=== PATIENT | female | born 1935 | race Caucasian/White ===

== ENCOUNTER 2016-04-08 10:25 | Day surgery (SDC) | payer MEDICARE, OTHER ==
[2016-04-08] VITALS (12 sets, daily range): BP systolic 135–162; BP diastolic 58–70; PULSE 85–107; RESP 16–23; Ht 162.6 cm; Wt 68.2 kg
[~2016-04-08] VITALS: Ht 162.6 cm; Wt 68.2 kg
[~2016-04-08 10:25] MED LIST: ATOR10TA23; HYDR-13; LISINOP/HCTZ; METF500T4; METO100T
[2016-04-08] MEDS ORDERED: AMLO-147 PO (11:47)
[2016-04-08] MEDS ORDERED: CRAN450T7 PO (11:48)
[2016-04-08] MEDS ORDERED: CHOL100062 PO (11:48)
[2016-04-08] MEDS ORDERED: GLIP5TAB13 PO (11:49)
[2016-04-08] MEDS ORDERED: GLUC1KIT2 IJ (11:50)
[2016-04-08] MEDS ORDERED: DEXT38GE15 PO (11:50)
[2016-04-08] MEDS ORDERED: POLY17PO3 PO (11:51)
[2016-04-08] MEDS ORDERED: HYDR50CA2 PO (11:52)
[2016-04-08] MEDS ORDERED: APR50 PO (11:52)
[2016-04-08] MEDS ORDERED: LEVO25TA53 PO (11:53)
[2016-04-08] MEDS ORDERED: METO-407 PO (11:54)
[2016-04-08] MEDS ORDERED: MIRT15TA5 PO (11:55)
[2016-04-08] MEDS ORDERED: MULTI PO (11:55)
[2016-04-08] MEDS ORDERED: CLOP75TA27 PO (11:56)
[2016-04-08] MEDS ORDERED: HYDR-902 PO (11:56)
[2016-04-08] MEDS ORDERED: ASCO500C7 PO (11:58)
[2016-04-08] MEDS ORDERED: TRAM-40 PO (11:58)
[2016-04-08 12:38] LABS: BASOPHIL # 0.1 10^3/ul (0.0-0.1); BASOPHILS % 0.4 % (0.0-2.0); EOSINOPHILS # 0.2 10^3/ul (0.0-0.5); EOSINOPHILS % 1.5 % (0.0-7.0); HEMATOCRIT 28.1 % (37.0-47.0); HEMOGLOBIN 9.2 g/dl (12.0-16.0); LYMPHOCYTES % 24.8 % (15.0-51.0); MEAN CORPUSCULAR HGB CONC 32.6 g/dl (32.0-37.0); MEAN CORPUSCULAR VOLUME 79.9 fl (82.0-101.0); MEAN PLATELET VOLUME 7.7 fl (7.4-10.4); MONOCYTES % 8.3 % (0.0-11.0); NEUTROPHIL # 7.9 10^3/ul (1.6-7.5); PLATELET COUNT 433 10^3/UL (140-440); RED BLOOD COUNT 3.52 10^6/ul (4.20-5.40); RED CELL DISTRIBUTION WIDTH 13.7 % (11.5-14.5); UNCORRECTED WBC 12.1 10^3/ul (4.8-10.8); WHITE BLOOD COUNT 12.1 10^3/ul (4.8-10.8)
[2016-04-08 12:42] LABS: CONDITION 1; LH ANALYZER COMMENTS 1
[2016-04-08 12:54] LABS: ALBUMIN 3.6 g/dl (3.3-4.9)
[2016-04-08 12:55] LABS: POTASSIUM 4.4 mmol/L (3.5-5.1)
[2016-04-08 12:57] LABS: ALBUMIN/GLOBULIN RATIO 0.69; CREATININE 0.67 mg/dl (0.44-1.00); TOTAL PROTEIN 8.8 g/dl (6.1-8.1)
[2016-04-08 12:59] LABS: CALCIUM 9.2 mg/dl (8.4-10.2)
[2016-04-08 13:07] LABS: INR 1.03; PROTIME 13.5 Sec (12.2-14.2); PT RATIO 1.1
[2016-04-08] MEDS ORDERED: FENTAnyl 50 MCG/ML VIAL ONE ×2 (13:18→13:56)
[2016-04-08] MEDS ORDERED: HEPARIN 1000 UNITS/NS (A-LINE) 1,000 ML ONE (13:18)
[2016-04-08] MEDS ORDERED: MIDAZOLAM 1 MG/ML 2 ML INJ ONE (13:18)
[2016-04-08] MEDS ORDERED: LIDOCAINE 1% (MDV) 20 ML INJ ONE (13:18)
[2016-04-08] MEDS ORDERED: IODIXANOL LOCM 50 ML BTL ONE (13:18)
[2016-04-08 13:34] LABS: PARTIAL THROMBOPLASTIN TIME 35.2 Sec (25.0-35.0)
[2016-04-08] MEDS ORDERED: SOD CHLORIDE 0.9% 500 ML ONE (13:45)
[2016-04-08] MEDS ORDERED: hydrALAzine 20 MG INJ ONE (13:53)
[2016-04-08] MEDS ORDERED: HYDROCODONE/APAP (5/325) TAB PO ONE (15:00)
--- NOTE | 2016-04-08 15:15 | OPR ---
DATE OF OPERATION: PREOPERATIVE DIAGNOSIS: Peripheral vascular disease, left lower extremity. POSTOPERATIVE DIAGNOSIS: Peripheral vascular disease, left lower extremity. OPERATIONS PERFORMED: 1. Angioplasty left femoral artery 6 x 40 mm balloon 2. Abdominal aortogram 3. Left lower extremity failed aortic angiogram. 5. Interpretation and supervision of the abdominal aortogram 6. Interpretation and supervision of the angioplasty in left lower extremity failed ____angiogram. 7. Ultrasound guidance into the central vein. 8. Conscious sedation. 9. Fluoroscopy. 9. Angio-Seal closure of the right femoral artery. SURGEON: Barrett Benoit MD CHALK MACHINE OPERATOR: Dr. Woo OPERATIVE TECHNIQUE: The patient was placed in supine position, prepped and draped in usual sterile fashion. Under ultrasonic guidance, access was gained in the right common femoral artery. Guidewi re was advanced through without any difficulty. Subcutaneous tissues dilated and the pigtail cathet er was advanced into the abdominal aorta. Next, after doing an abdominal aortogram and lower extrem ity angiogram, the catheter was advanced from right to left. Third order ____ angiogram was also don e. The patient was given 3000 units of IV heparin and over 0.035 Bentson wire using a 6 x 40 mm bal loon, the femoral artery was angioplastied. Subsequently, the final angiogram revealed less than 1 0% stenosis in the femoral artery. All hardware was removed and the common femoral artery was close d using Angio-Seal. Interpretation and supervision of the angiogram revealed the abdominal aorta normal, right common il iac artery normal, right internal iliac artery normal, right external iliac artery normal, right pro maxine normal with minimal disease, right superficial femoral artery in the proximal aspect of it was normal. On the left side, the left common iliac artery normal. Internal iliac artery normal, external iliac artery normal. Common femoral artery had a 90% stenosis at 4 cm proximal to the bifurcation. The rest of the superficial femoral artery appeared to be normal. Popliteal artery was diffusely diseas ed and 100% occluded at the trifurcation. The anterior tibial artery showed up at the collaterals a ll the way from the proximal aspect down to the ankle about 1 mm vessel. The posterior tibial arter y and peroneal artery did not show up. Dictated By: BARRETT AIKEN/NTS Conf#: [id number] DID#: [id number] CC: JEREMIE WOO MD;*[facility]*
--- NOTE | 2016-04-09 09:28 | RADRPT ---
Vent Rate: 84 bpm RR Interval: 0 msec NM Interval: 196 msec QRS Duration: 96 msec QT Interval: 384 msec QTC Interval: 453 msec P-R-T [place]: 60 - -17 - 27 degrees Normal sinus rhythm Normal ECG Electronically Signed By: Marvin Mcgowan [id number]
== END 2016-04-08 16:25 | disposition home or self-care (01) ==
LOC: SDS 10:25
PROVIDERS: ATTEND Thoracic Surgery (Cardiothoracic Vascular Surgery)
DX: I70.202 Unspecified atherosclerosis of native arteries of extremities, left leg (principal); I10 Essential (primary) hypertension; E78.5 Hyperlipidemia, unspecified; Z89.431 Acquired absence of right foot
CPT/HCPCS: 37224; 80053; 82962; 85025; 85610; 85730; 93005; C1725; C1760; C1769; C1887; C1894; J0360; J1644; J2250; J3010; J7040; Q9967

== ENCOUNTER → 2016-07-25 | Outpatient (CLI) | payer MEDICARE, OTHER ==
[~2016-07-25] MED LIST changes: +AMLO-147 PO; +ASCO500C7 PO; -ATOR10TA23; +CHOL100062 PO; +CLOP75TA27 PO; +CRAN450T7 PO; +DEXT38GE15 PO; +GLIP5TAB13 PO; +GLUC1KIT2 IJ; -HYDR-13; +HYDR-3672 PO; +HYDR-902 PO; +HYDR50CA2 PO; +LEVO25TA53 PO; -LISINOP/HCTZ; -METF500T4; +METO-407 PO; -METO100T; +MIRT15TA5 PO; +MULTI PO; +POLY17PO3 PO; +TRAM-40 PO
--- NOTE | 2016-07-25 19:15 | RADRPT ---
Echocardiogram Report Patient Name: CELESTINA HERNANDEZ Gender: Female Date: 1935 Study Date: 25-Jul-2016 Color Coater: [facility] Location: EKG Ref. Physician: LIDYA DIAZ Quality: Adequate Procedures: Transthoracic echocardiogram with complete 2D, M-Mode, and doppler examination. Indications: ATHEROSLEROTIC HEART DISEASE. 2D/M Mode Doppler Measurement Value Normal Ranges Measurement Value Normal Ranges LVIDd 2D 5.2 3.5 - 5.6 cm AV Peak Sanket 1.9 m/sec LVIDs 2D 3.3 2.1 - 4.1 cm AV Peak PG 14.5 mmHg LVPWd 2D 1.0 0.6 - 1.1 cm LVOT Peak Sanket 0.9 m/sec IVSd 2D 1.0 0.6 - 1.1 cm LVOT Peak PG 3.5 mmHg AoR Diam 2D 2.7 2.0 - 3.7 cm MV E Peak Sanket 1.2 m/sec EDV 2D 131.3 cm3 MV A Peak Sanket 1.1 m/sec ESV 2D 34.8 cm3 MV E/A 1.0 LA Dimen 2D 3.8 2.3 - 4.0 cm MV Decel Time 217 msec MV Decel [place] 5 MV E/A 1.0 Findings Left Ventricle: Normal left ventricular systolic function. Normal left ventricular cavity size. Left ventricular wall thickness upper limits of normal. Ejection fraction is visually estimated at 60 %. Abnormal Diastolic Function. Right Ventricle: Normal right ventricular size. Normal right ventricular systolic function. Left Atrium: The left atrium is normal in size. Right Atrium: The right atrium is normal in size. Mitral Valve: Mild mitral leaflet calcification. Mild mitral annular calcification. Trace mitral regurgitation. Aortic Valve: Aortic sclerosis without stenosis. Trace aortic valve regurgitation. Tricuspid Valve: Tricuspid valve not well visualized. There is trace tricuspid regurgitation. Pulmonic Valve: Pulmonic valve not well visualized. There is trace pulmonic regurgitation. Pericardium: Normal pericardium with no significant pericardial effusion. Aorta: Normal aortic root. IVC: Normal size and normal respiratory collapse consistent with normal right atrial pressure. Conclusions 1.Normal left ventricular systolic function. Normal left ventricular cavity size. Left ventricular wall thickness upper limits of normal. Ejection fraction is visually estimated at 60 %. Abnormal Diastolic Function. 2.Mild mitral leaflet calcification. Mild mitral annular calcification. Trace mitral regurgitation. 3.Aortic sclerosis without stenosis. Trace aortic valve regurgitation. 4.Tricuspid valve not well visualized. There is trace tricuspid regurgitation. 5.Pulmonic valve not well visualized. There is trace pulmonic regurgitation. Electronically Signed By: Hector Dillon 25-Jul-2016 19:14:12 -0700 Patient Name: CELESTINA HERNADNEZ Study Date: 25-Jul-2016 [id number]
== END | disposition home or self-care (01) ==
LOC: EKG 13:55
PROVIDERS: ATTEND Family Medicine
DX: I25.10 Atherosclerotic heart disease of native coronary artery without angina pectoris (principal)
CPT/HCPCS: 93306

== ENCOUNTER → 2016-08-15 | Outpatient (CLI) | payer MEDICARE, OTHER ==
--- NOTE | 2016-08-15 15:49 | RADRPT ---
Echocardiogram Report Patient Name: CELESTINA HERNANDEZ Gender: Female Date: 1935 Study Date: 15-Aug-2016 [employer] Representative: Clive Alex RDCS Location: EKG Ref. Physician: JOSE CRUZ DILLON Quality: Adequate Procedures: Transthoracic echocardiogram with complete 2D, M-Mode, and doppler examination. Indications: Hypertension. 2D/M Mode Doppler Measurement Value Normal Ranges Measurement Value Normal Ranges LVIDd 2D 5.1 3.5 - 5.6 cm AV Mean Sanket 1.4 m/sec LVIDs 2D 2.9 2.1 - 4.1 cm AV Mean PG 9.0 mmHg FS 2D 43.5 % AV Peak Sanket 2.1 m/sec LVPWd 2D 1.2 0.6 - 1.1 cm AV Peak PG 18.0 mmHg IVSd 2D 1.2 0.6 - 1.1 cm AV VTI 48.2 cm IVS/LVPW 2D 1.0 LVOT Mean Sanket 0.7 m/sec AoR Diam 2D 2.5 2.0 - 3.7 cm LVOT Mean PG 2.0 mmHg LA/Ao 2D 1 0 - 1 LVOT Peak Sanket 1.0 m/sec EDV 2D 131.0 cm3 LVOT Peak PG 4.0 mmHg ESV 2D 23.6 cm3 LVOT VTI 23.5 cm LA Dimen 2D 3.6 2.3 - 4.0 cm MV E Peak Sanket 0.7 m/sec MV A Peak Sanket 0.9 m/sec MV E/A 0.8 MV Decel Time 271 msec MV E/A 0.8 TR Peak Sanket 2.2 m/sec TR Peak PG 20.0 mmHg RVSP 23.0 mmHg Findings Left Ventricle: Normal left ventricular systolic function. Normal left ventricular cavity size. Mild concentric left ventricular hypertrophy. Ejection fraction is visually estimated at 60 %. Tissue Doppler/Mitral Doppler indices are consistent with impaired relaxation (Stage I diastolic dysfunction). Right Ventricle: Normal right ventricular size. Normal right ventricular systolic function. Left Atrium: The left atrium is normal in size. Right Atrium: The right atrium is normal in size. Mitral Valve: Normal appearance and function of the mitral valve with trace physiologic regurgitation. Aortic Valve: Aortic valve Max velocity 2.13 m/sec. Max PG 18.00 mmHg. Mean PG 9.00 mmHg. Aortic sclerosis without stenosis. No aortic regurgitation. Tricuspid Valve: Normal appearance of the tricuspid valve. Estimated peak PA systolic pressure 23 mmHg. There is trace tricuspid regurgitation. Pulmonic Valve: Pulmonic valve not well visualized. There is trace pulmonic regurgitation. Pericardium: Normal pericardium with no significant pericardial effusion. Aorta: Normal aortic root. IVC: Normal size and normal respiratory collapse consistent with normal right atrial pressure. Conclusions 1.Normal left ventricular systolic function. Normal left ventricular cavity size. Mild concentric left ventricular hypertrophy. Ejection fraction is visually estimated at 60 %. Tissue Doppler/Mitral Doppler indices are consistent with impaired relaxation (Stage I diastolic dysfunction). 2.Normal appearance and function of the mitral valve with trace physiologic regurgitation. 3.Normal appearance of the tricuspid valve. Estimated peak PA systolic pressure 23 mmHg. There is trace tricuspid regurgitation. 4.Pulmonic valve not well visualized. There is trace pulmonic regurgitation. Electronically Signed By: Jose Cruz Dillon 15-Aug-2016 15:48:44 -0700 Patient Name: CELESTINA HERNANDEZ Study Date: 15-Aug-2016 [id number]
== END | disposition home or self-care (01) ==
LOC: EKG 08:09
PROVIDERS: ATTEND Internal Medicine
DX: I10 Essential (primary) hypertension (principal)
CPT/HCPCS: 93306

== ENCOUNTER 2016-09-02 09:38 | Inpatient (IN) | payer MEDICARE, OTHER ==
[2016-09-02] VITALS (17 sets, daily range): BP systolic 148–182; BP diastolic 67–79; PULSE 50–68; RESP 14–18; Ht 162.6 cm; Wt 142.0 kg
[~2016-09-02] VITALS: Ht 162.6 cm; Wt 142.0 kg
--- NOTE | 2016-09-02 00:39 | HP ---
DATE OF ADMISSION: 09/02/2016 ADMITTING DIAGNOSES: 1. Right leg below knee amputation stump cellulitis for revision and debridement by Dr. Addy Chavez. 2. Diabetes mellitus type 2. 3. Peripheral vascular disease with history of left leg gangrene and then below knee amputation. 4. Hypertension. 5. Dementia with behavioral disturbances. 6. Major depression. 7. Atherosclerotic cardiovascular disease. 8. Chronic pain syndrome. HISTORY OF PRESENT ILLNESS: The patient is a 80-year-old female who will be admitted for right belo w-knee stump revision secondary to pain and discomfort and swelling and discharge. Patient is being evaluated by Dr. Addy Chavez and agrees for amputation and debridement of the wound and to fix the pr osthesis. The patient had surgery done at [facility] years ago. Admitted for further management. T he patient has chronic pain and she cannot fit the prosthesis on the leg secondary to right leg infe ction. 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 Dementia with behavioral disturbanc es and hypertension, atherosclerotic cardiovascular disease, gastroesophageal reflux disorder and hi story of anemia and peptic ulcer disease. Recurrent sepsis and nonhealing ulcer in the extremities. History of dermatitis and sleep disorder. PAST SURGICAL HISTORY: The patient has history of appendectomy, hysterectomy, history of cholecyste ctomy and eye surgery and both below knee amputation surgery, had one done a few months ago, other o ne done a year ago. ALLERGIES: NONE. MEDICATIONS: Currently on: 1. Tylenol 650 q.4h. 2. Vitamin C 500 mg daily. 3. Bactroban cream for the nostril for her ____ MRSA. 4. Patient taking Glipizide 5 mg 2 times a day. 5. Hydralazine 50 mg t.i.d. 6. Lopressor 100 mg b.i.d. and then multivitamins. 7. Neurontin 300 mg 3 times a day. 8. [place] 10/325 q.6h. 9. Norvasc 10 mg once a day. 10. Accu-Chek twice a day with insulin Aspart sliding scale. 11. Levoxyl 25 mcg once daily for hypothyroidism. 12. Tramadol 50 mg 3 times a day. 13. Zinc sulfate 220 mg p.o. daily. FAMILY HISTORY: Unremarkable. HABITS: Not a smoker, drinker or drug abuser. REVIEW OF SYSTEMS: GASTROINTESTINAL: No history of upper or lower GI bleeding. No history of liver disease or abdomin al pain. RESPIRATORY: No shortness of breath, no cough. No primary tuberculosis or hemoptysis. CARDIOVASCULAR: Hypertension, peripheral vascular disease, no chest pain, but the peripheral vascul ar disease advanced from diabetes and then with amputation of both lower extremities ____ gangrene of the left foot. NEUROLOGIC: No seizure or convulsion with diabetic neuropathy with numbness and pain in lower extre mities, chronic pain syndrome. SKIN: No history of skin disease except infection, recurrent cellulitis of the lower extremities. GENITOURINARY: No dysuria or hematuria. No kidney failure. MENTAL: No history of psychosis but depression and memory loss. CONSTITUTIONAL: The patient has hyperlipidemia which was controlled now. ENDOCRINE: Diabetes mellitus and diabetes mellitus, controlled. PHYSICAL EXAMINATION: GENERAL: The patient is awake, calm, looks stated age. VITAL SIGNS: On admission show blood pressure 130/75, pulse 76, O2 saturation 96% on room air, res pirations 20, temperature 98.2. HEAD: Normocephalic, atraumatic. Pupils equal, react to light and accommodation. Sclerae anicteri c. Extraocular movements normal limits. Throat clear. No sign of acute infection seen. Facial sk in and scalp within normal limits. Eye examination done and evaluated by clinical pharmacy technician. NECK: Supple, trachea central, no thyroid enlargement, no cervical lymphadenopathy. Carotid pulse normal. No jugular venous distention. CHEST: Normal contour, normal inspiration and expiration. LUNGS: Clear to auscultation and percussion. HEART: Regular sinus rhythm. No rub or murmur. PMI localized in midclavicular line, fourth interc ostal space. The patient had a systolic murmur with history of mitral regurgitation and stable now. BREASTS: Normally shaped. No muscle retraction, no nipple discharge. ABDOMEN: Umbilicus central. Multiple scars on the abdomen from previous surgery of cholecystectomy , appendectomy and hysterectomy. Otherwise soft abdomen. No murmurs, no ____ history. EXTREMITIES: Upper and lower extremities ____. No clubbing, cyanosis, or deformity with bilateral knee amputation with tender right stump with discharge, ____ redness, nonhealing, ulcer with dry ramin p with femoral pulses normal. Sensation hypoesthesia in the legs. NEUROLOGIC: Cranial nerves II through XII grossly normal limits. Peripheral nerves, sensory and mo tor intact except hypoesthesia in the lower extremities. IMPRESSION: 1. 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 Chavez. 2. Diabetes mellitus type 2. 3. History of peripheral vascular disease status post below knee amputations. 4. Coronary artery disease and ____ mitral valve regurgitation. 5. Anemia and peripheral vascular disease, peripheral neuropathy, hyperlipidemia, hypothyroidism. PLAN: The patient had already been cleared by Dr. Galvin in cardiology consult and then by Dr. Dillon, and the patient is cleared for surgery by Dr. Chavez tomorrow. CODE STATUS: FULL CODE. CONDITION: Now is stable. PROGNOSIS: Fair to guarded. Dictated By: LIDYA WEINBERG/JITENDRA Conf#: [id number] DID#: [id number]
[2016-09-02] MEDS ORDERED: HYDR-3671 PO (10:42)
[2016-09-02] MEDS ORDERED: LACT10SO5 PO (10:44)
[2016-09-02] MEDS ORDERED: METO-407 PO (10:45)
[2016-09-02] MEDS ORDERED: GABA300C16 PO (10:46)
[2016-09-02] MEDS ORDERED: SS SC (10:52)
[2016-09-02] MEDS ORDERED: TRAM-40 PO (10:54)
[2016-09-02] MEDS ORDERED: ACET325T45 PO (10:55)
[2016-09-02] MEDS ORDERED: PROPOFOL 20 ML ONE (12:23)
[2016-09-02] MEDS ORDERED: ROCURONIUM 50 MG INJ ONE (12:23)
[2016-09-02] MEDS ORDERED: EPHEDrine SULFATE 50 MG/5 ML SYG ONE (12:23)
[2016-09-02] MEDS ORDERED: LIDOCAINE 100 MG SYRINGE ONE (12:23)
[2016-09-02] MEDS ORDERED: FENTAnyl 50 MCG/ML VIAL ONE ×2 (12:23→14:30)
[2016-09-02] MEDS ORDERED: ACETAMINOPHEN 1000MG/100ML IV 100 ML ONE (12:23)
[2016-09-02] MEDS ORDERED: ONDANSETRON 4 MG INJ ONE (12:26)
[2016-09-02] MEDS ORDERED: DEXAMETHASONE 4 MG/ML 1 ML INJ ONE (12:26)
[2016-09-02] MEDS ORDERED: FAMOTIDINE 20 MG INJ ONE (12:26)
[2016-09-02] MEDS ORDERED: POLYMYXIN/BACITRACIN 1L IRRIG ONE (12:53)
--- NOTE | 2016-09-02 13:33 | HPN ---
Date/Time of Note Date/Time of Note DATE: 09/02/16 TIME: 13:32 Interval H&P Admission Note Pt. seen H&P reviewed: No system changes SONA IBRAHIM MD Sep 02, 2016 13:33
[2016-09-02] MEDS ORDERED: CEFAZOLIN 1 GM INJ ONE (13:46)
[2016-09-02] MEDS ORDERED: GLYCOPYRROLATE 1 MG INJ ONE (13:51)
[2016-09-02] MEDS ORDERED: POLYMYXIN/BACITRACIN 1L IRRIG IRR ONE (14:15)
[2016-09-02] MEDS ORDERED: LABETALOL HCL 20MG INJ ONE ×2 (14:20→15:15)
[2016-09-02] MEDS ORDERED: SUGAMMADEX SODIUM 200 MG/2 ML VIAL IV ONE (14:30)
[2016-09-02] MEDS ORDERED: FENTAnyl 50 MCG/ML VIAL IV PRN ×3 (15:00)
[2016-09-02] MEDS ORDERED: LABETALOL HCL 20MG INJ IV PRN (15:00)
[2016-09-02] MEDS ORDERED: ONDANSETRON 4 MG INJ IV PRN (15:00)
[2016-09-02] MEDS ORDERED: HYDROmorphONE 2 MG/ML SYG ONE (15:22)
[2016-09-02] MEDS ORDERED: HYDROCODONE/APAP (5/325) TAB PO PRN (16:00)
[2016-09-02 16:25] LABS: ADD SCAN DIFF NO
[2016-09-02 16:27] LABS: BASOPHILS % 0.3 % (0.0-2.0); EOSINOPHILS # 0.1 10^3/ul (0.0-0.5); EOSINOPHILS % 1.4 % (0.0-7.0); HEMATOCRIT 33.8 % (37.0-47.0); HEMOGLOBIN 11.3 g/dl (12.0-16.0); LYMPHOCYTES # 2.2 10^3/ul (0.8-2.9); LYMPHOCYTES % 21.8 % (15.0-51.0); MEAN CORPUSCULAR HGB CONC 33.4 g/dl (32.0-37.0); MEAN CORPUSCULAR VOLUME 83.9 fl (82.0-101.0); MEAN PLATELET VOLUME 9.9 fl (7.4-10.4); MONOCYTE # 0.2 10^3/ul (0.3-0.9); MONOCYTES % 1.7 % (0.0-11.0); NEUTROPHIL # 7.6 10^3/ul (1.6-7.5); NEUTROPHILS % 74.4 % (39.0-77.0); PLATELET COUNT 334 10^3/UL (140-415); RED BLOOD COUNT 4.03 10^6/ul (4.20-5.40); RED CELL DISTRIBUTION WIDTH 13.3 % (11.5-14.5); WHITE BLOOD COUNT 10.2 10^3/ul (4.8-10.8)
[2016-09-02 16:44] LABS: CALCIUM 8.8 mg/dl (8.4-10.2); CREATININE 0.62 mg/dl (0.44-1.00); POTASSIUM 4.5 mmol/L (3.5-5.1)
[2016-09-02] MEDS ORDERED: traMADol 50 MG TAB PO PRN (17:00)
[2016-09-02] MEDS ORDERED: LACTULOSE 30ML CUP PO PRN (17:00)
[2016-09-02] MEDS ORDERED: ACETAMINOPHEN 325 MG TAB PO PRN (17:00)
[2016-09-02] MEDS: D5-NS + KCL 20 MEQ 1,000 ML IV SCH (17:15)
[2016-09-02] MEDS: CEFAZOLIN 1 GM/50 ML (PMX) 50 ML IVPB SCH ×2 (17:16→23:03)
[2016-09-02] MEDS ORDERED: INSULIN REGULAR, HUMAN 100 UNIT/1 ML 3ML VIAL SC SCH (17:25)
[2016-09-02] MEDS: AMLODIPINE 10 MG TAB PO SCH (18:01)
[2016-09-02] MEDS: Insulin ASPART slide scale (Novolog) SC SCH (18:19)
[2016-09-02] MEDS ORDERED: OXYCODONE/ACETAMINOPHEN (5/325) TAB PO PRN ×2 (19:00)
[2016-09-02] MEDS: GABAPENTIN 300 MG CAP PO SCH (20:42)
[2016-09-02] MEDS: METOPROLOL 100 MG TAB PO SCH (20:43)
[2016-09-02] MEDS: morphine 2 MG INJ IV PRN (22:24)
[2016-09-02] MEDS ORDERED: GLUCOSE GEL 15 GRAM TUBE BUCCAL PRN (23:00)
[2016-09-02] MEDS ORDERED: GLUCOSE GEL 15 GRAM TUBE PO PRN ×2 (23:00)
[2016-09-02] MEDS ORDERED: DEXTROSE 50% 50 ML SYRINGE IV PRN ×2 (23:00)
[2016-09-02] MEDS ORDERED: GLUCAGON 1 MG INJ IM PRN (23:00)
[2016-09-03] VITALS: BP 154/68; RESP 18
[2016-09-03] MEDS: D5-NS + KCL 20 MEQ 1,000 ML IV SCH ×3 (01:38→14:19)
[2016-09-03] MEDS: HYDROCODONE/APAP (10/325) TAB PO PRN ×2 (03:30→20:30)
[2016-09-03 05:45] VITALS: BP 151/65; PULSE 62; RESP 18
[2016-09-03 07:00] VITALS: BP 155/68; RESP 18
[2016-09-03] MEDS ORDERED: LEVOTHYROXINE 25 MCG TAB PO SCH (07:00)
[2016-09-03] MEDS: GABAPENTIN 300 MG CAP PO SCH ×3 (08:46→19:59)
[2016-09-03] MEDS: METOPROLOL 100 MG TAB PO SCH ×2 (08:47→20:00)
[2016-09-03] MEDS: AMLODIPINE 10 MG TAB PO SCH (08:50)
[2016-09-03] MEDS: Insulin ASPART slide scale (Novolog) SC SCH ×3 (08:54→17:55)
[2016-09-03] MEDS: CEFAZOLIN 1 GM/50 ML (PMX) 50 ML IVPB SCH (08:56)
[2016-09-03 12:46] VITALS: BP 133/63; PULSE 55; RESP 18
--- NOTE | 2016-09-03 15:59 | PDOCDIS ---
Discharge Instructions CONDITION Patient Condition: Fair HOME CARE INSTRUCTIONS: Diet Instructions: Low Fat /Cholesterol ACTIVITY: Activity Restrictions: No Restrictions LIDYA DIAZ MD Sep 03, 2016 15:59
[2016-09-03] MEDS: morphine 2 MG INJ IV PRN ×2 (17:11→19:37)
[2016-09-03 19:26] VITALS: BP 168/67; RESP 19
--- NOTE | 2016-09-05 14:46 | OPR ---
Date/Time of Note Date/Time of Note DATE: 09/05/16 TIME: 14:39 Operative Report Free Text/Dictation Operative report Preoperative diagnosis; necrotic below the knee amputation stump of the right leg with possible osteomyelitis. Postoperative diagnosis; same as preop diagnosis Procedure performed; revision below the knee amputation of the right leg. Anesthesia; general anesthesia surgeon Addy Ibrahim M.D. Procedures and findings Under general anesthesia the patient was placed in supine position upon the operating table. Usual prep and drape was done exposing the right leg. A tourniquet which was placed over the proximal portion of the right thigh was inflated up to 300 mmHg prior to the procedure. A skin flap was designed according to the intended lever of revision amputation after raising tourniquet incision was carried down along the designed skin flaps and subperiosteal dissection was carried out proximally up to the intended level of the amputation the bleeding vessels were clamped and tied and controlled the tibia was amputated at the level of intended amputation along with the amputation of fibula at about a centimeter proximal to the level of tibial amputation. Distal end of the remaining tibia and was smooth and and vomited. A closure of the incision was carried out using 0 Vicryl for muscle and fascia and 2-0 Vicryl for subcutaneous tissues final skin closure was carried out with skin patricia. Usual sterile pressure dressings were applied. The patient tolerated the procedure very well and was sent to the recovery room in excellent condition. SONA IBRAHIM MD Sep 05, 2016 14:46
== END 2016-09-03 20:55 | DRG 475 ==
LOC: REC 09:38 → MS1 16:23
PROVIDERS: ADMIT Orthopaedic Surgery; ATTEND Orthopaedic Surgery
PROC: 0Y6H0Z1 Detachment at Right Lower Leg, High, Open Approach (ICD-10-PCS; principal; 2016-09-02 13:00)
DX: T87.43 Infection of amputation stump, right lower extremity (principal); L03.115 Cellulitis of right lower limb; F03.91 Unspecified dementia, unspecified severity, with behavioral disturbance; E11.42 Type 2 diabetes mellitus with diabetic polyneuropathy; M86.8X6 Other osteomyelitis, lower leg; Y83.5 Amputation of limb(s) as the cause of abnormal reaction of the patient, or of later complication, without mention of misadventure at the time of the procedure; E11.51 Type 2 diabetes mellitus with diabetic peripheral angiopathy without gangrene; F32.9 Major depressive disorder, single episode, unspecified; I25.10 Atherosclerotic heart disease of native coronary artery without angina pectoris; G89.29 Other chronic pain; I34.0 Nonrheumatic mitral (valve) insufficiency; D64.9 Anemia, unspecified; E03.9 Hypothyroidism, unspecified; K21.9 Gastro-esophageal reflux disease without esophagitis; E11.69 Type 2 diabetes mellitus with other specified complication
CPT/HCPCS: 80048; 82962; 85025; 86850; 86900; 86901; 87081; 88307; J0131; J0690; J1100; J1170; J1815; J2001; J2270; J2405; J3010; J3480

== ENCOUNTER 2017-06-28 21:45 | Emergency (ER) | END 2017-06-29 00:49 | disposition home or self-care (01) ==

== ENCOUNTER → 2017-10-14 | Outpatient (CLI) | END | disposition home or self-care (01) ==